=== PATIENT | male | born 1990 | race Caucasian/White ===

== ENCOUNTER 2022-02-24 06:12 | Emergency (ER) | payer OTHER ==
[2022-02-24 06:32] LABS: #Basophils 0.1 thou/uL (0.0-0.2); #Eosinphils 0.2 thou/uL (0.0-0.7); #Lymphocytes 1.9 thou/uL (1.20-3.40); %Basophils 0.7 % (0.0-1.0); %Eosinophils 2.4 % (0.0-10.0); %Lymphocytes 20.8 % (21.0-51.0); %Monocytes 11.1 % (0.0-10.0); Hemoglobin 15.4 g/dL (14.0-18.0); Mean Corpuscular HGB CONC 32.2 g/dL (32.0-36.0); Mean Corpuscular Hemoglobin 28.4 pg (27.0-31.0); Mean Corpuscular Volume 88.3 fL (78.0-98.0); Mean Platelet Volume 9.5 fL (7.4-10.4); Platelet Count 231 thou/uL (130-400); RBC Distribution Width 11.7 % (11.5-14.5); Red Blood Cell (RBC) Count 5.43 mill/uL (4.70-6.10); White Blood Cell (WBC) Count 9.2 thou/uL (4.8-10.8)
[2022-02-24 06:37] LABS: Bilirubin Small (Negative); Blood, Urine Negative (Negative); Clarity Clear (Clear); Glucose, Urine (Dipstick) Negative (Negative); Ketone, Urine Trace mg/dL (Negative); Leukocyte Negative (Negative); Nitrite Negative (Negative); Protein, Urine (Dipstick) 30 mg/dL (Neg-Trace); Urobilinogen > or = 8.0 mg/dL (Less than 2); pH, Urine 7.5 (5.0-9.0)
[2022-02-24 06:40] LABS: Bacteria/HPF None Seen HPF (None Seen); RBC/HPF 0-3 HPF (0-3); Squamous Epithelial None Seen HPF (0-3); WBC/HPF 0-3 HPF (0-3)
[2022-02-24] MEDS ORDERED: Sodium Chloride 0.9% 1,000 ML ONE ×2 (06:48→08:23)
[2022-02-24] MEDS ORDERED: Ondansetron PF 4 MG/2 ML Vial ONE (06:48)
[2022-02-24] MEDS ORDERED: Morphine 4 MG/ML VIAL ONE (06:49)
[2022-02-24 06:50] LABS: ALT (SGPT) 23 U/L (8-55); AST (SGOT) 20 U/L (5-34); Albumin 4.4 g/dL (3.5-5.0); Alkaline Phosphatase 82 U/L (40-110); Anion Gap 15 mmol/L (10-20); BUN (Urea Nitrogen) 15 mg/dL (8.9-20.6); Bilirubin, Total 0.8 mg/dL (0.2-1.2); Calc. Creatinine Clearance 0 mL/min (70-130); Calcium 9.4 mg/dL (7.8-10.44); Carbon Dioxide 25 mmol/L (22-29); Chloride 102 mmol/L (98-107); Estimated GFR 118; Globulin 2.9 g/dL (2.4-3.5); Glucose 95 mg/dL (70-105); Lipase 11 U/L (8-78); Potassium 3.6 mmol/L (3.5-5.1); Protein, Total 7.3 g/dL (6.0-8.3); Sodium 138 mmol/L (136-145)
[2022-02-24] MEDS ORDERED: Ketorolac Tromethamine 30 MG/ML VIAL ONE (07:42)
[2022-02-24] MEDS ORDERED: Sodium Chloride 0.9% 100 ML ONE (08:23)
[2022-02-24] MEDS ORDERED: Cefepime 2 GM VIAL ONE (08:23)
[2022-02-24] MEDS ORDERED: metroNIDAZOLE 500 MG/100 ML BAG ONE (08:36)
[2022-02-24 08:40] LABS: SARS-CoV-2 NAA Rapid Test Not Detected (NotDetected)
[2022-02-24] MEDS ORDERED: Iopamidol 370 76% 100 ML VIAL ONE (09:00)
== END 2022-02-24 09:29 | disposition short-term general hospital (02) ==
LOC: NAV ERS 06:12
DX: K35.20 Acute appendicitis with generalized peritonitis, without abscess (principal); R11.2 Nausea with vomiting, unspecified; K21.9 Gastro-esophageal reflux disease without esophagitis; I10 Essential (primary) hypertension; E78.5 Hyperlipidemia, unspecified; Z20.822 Contact with and (suspected) exposure to COVID-19; Z87.891 Personal history of nicotine dependence; Z79.899 Other long term (current) drug therapy
CPT/HCPCS: 74177; 80053; 81003; 81015; 83690; 85025; 94760; 96361; 96365; 96367; 96375; J0692; J1885; J2270; J2405; J3490; J7050; Q9967; U0002

== ENCOUNTER 2023-05-16 19:49 | Emergency (ER) | payer OTHER ==
[2023-05-16] MEDS ORDERED: Fluorescein Opthalmic Strip ONE (20:23)
[2023-05-16] MEDS ORDERED: Tetracaine 0.5% PF 4 ML BOT ONE (20:23)
[2023-05-16] MEDS ORDERED: valACYclovir 500 MG TAB ONE (20:53)
== END 2023-05-16 20:57 | disposition home or self-care (01) ==
LOC: NAV ERS 19:49
DX: B02.9 Zoster without complications (principal); I10 Essential (primary) hypertension; F17.290 Nicotine dependence, other tobacco product, uncomplicated
CPT/HCPCS: 99282